=== PATIENT | female | born 1985 | race Caucasian/White ===

== ENCOUNTER 2017-09-25 09:25 | Emergency (ER) | payer OTHER ==
[2017-09-25 09:29] VITALS: BP 119/60; PULSE 90; TEMP 98.7; BMI 27.8
--- NOTE | 2017-09-25 09:45 | PDOC ---
History of Present Illness - General Chief Complaint: Sore Throat Stated Complaint: Sore Throat Time Seen by Provider: 09/25/17 09:36 History Source: Patient Exam Limitations: No Limitations - History of Present Illness Initial Comments: Patient is a 31-year-old female who states that last night she began with a sore throat. She admits to a nonproductive cough, denies lymphadenopathy, denies fever. She denies sick contacts. She describes the pain as sore and rates it at a 2 out of 10. Denies any aggravating or relieving factors. 09/25/17 09:41 Timing/Duration: 24 hours Past History - Travel Traveled outside of the country in the last 30 days: No Close contact w/someone who was outside of country & ill: No - Past Medical History Allergies/Adverse Reactions: Allergies Allergy/AdvReac Type Severity Reaction Status Date / Time No Known Allergies Allergy Verified 09/25/17 09:29 Home Medications: Ambulatory Orders NK [No Known Home Medication] 09/25/17 Asthma: No Cancer: No Cardiac Disorders: No COPD: No Diabetes: No HTN: No Seizures: No Thyroid Disease: No Other medical history: denies - Immunization History Immunization Up to Date: Yes - Suicide/Smoking/Psychosocial Hx Smoking History: Never smoked Have you smoked in the past 12 months: No Information on smoking cessation initiated: No Hx Alcohol Use: No Drug/Substance Use Hx: No Hx Substance Use Treatment: No Review of Systems - Review of Systems Able to Perform ROS?: Yes Constitutional: No: Chills HEENTM: Yes: Throat Pain. No: Throat Swelling, Difficulty Swallowing Respiratory: Yes: Cough All Other Systems: Reviewed and Negative *Physical Exam - Vital Signs Last Vital Signs Temp Pulse Resp BP Pulse Ox 98.7 F 90 20 119/60 99 09/25/17 09:27 09/25/17 09:27 09/25/17 09:27 09/25/17 09:27 09/25/17 09:27 - Physical Exam Comments: 09/25/17 09:44 Constitutional: VS stated, pt appears in no apparent distress; sitting on exam table. Skin: Warm and dry. Intact, no lesions or excoriations. Head: Normocephalic; atraumatic Eyes: conjunctiva pink without injection or discharge. Ears: No tenderness present. Canals without injection or discharge; TM clear, no retractions or bulging. Nose: Patent, mucosa pink. No drainage. Throat: Oropharynx with pink and moist mucosa. Dentition good. No pharyngeal edema; erythema or exudate. Tongue normal, no fasciculations. Airway Patent. Hypoglossal area is soft. Uvula is midline. Neck: Supple, non-tender, with full ROM, trachea midline, no anterior/posterior cervical chain lymphadenopathy, thyroid nonpalpable. No stridor or bruits. Lungs: Bilateral breath sounds clear upon auscultation. No adventitious breath sounds. Heart: Regular rate and rhythm, S1/S2 auscultated. No murmurs, rubs, or gallops. No visible pulsations, heaves, or lifts on precordium. Musculoskeletal: Moves all extremities without difficulty. Neurologic: Awake, alert. Conversation fluent. Normal attention. Psychiatric: Appropriate affect. Medical Decision Making - Medical Decision Making 09/25/17 09:44 Pt's RBS was negative. Specimen sent out for throat culture. 09/25/17 10:02 *DC/Admit/Observation/Transfer Diagnosis at time of Disposition: Pharyngitis - Discharge Dispostion Disposition: HOME Condition at time of disposition: Stable Decision to Admit order: No - Referrals Referrals: Rafael Narayanan [Primary Care Provider] - - Patient Instructions Additional Instructions: Use warm saltwater gargles or Chloraseptic spray. Throw out toothbrush and replace with new. Force fluids. Follow-up with your PCP for worsening symptoms. - Post Discharge Activity Forms/Work/School Notes: Back to Work
== END 2017-09-25 10:09 | disposition home or self-care (01) ==
LOC: JERFT 09:25
DX: J02.9 Acute pharyngitis, unspecified (principal)
CPT/HCPCS: 87070; 87077; 87430; 99281-25

== ENCOUNTER 2018-09-26 23:33 | Emergency (ER) | payer OTHER | END 2018-09-27 02:42 | disposition home or self-care (01) | LOC: JER 23:33 | DX: S13.4XXA Sprain of ligaments of cervical spine, initial encounter (principal); V43.52XA Car driver injured in collision with other type car in traffic accident, initial encounter; Y93.89 Activity, other specified; Y92.410 Unspecified street and highway as the place of occurrence of the external cause ==

== ENCOUNTER 2019-12-01 09:35 | Emergency (ER) | payer OTHER ==
[2019-12-01 09:41] VITALS: BP 113/78; TEMP 98.4; BMI 24.0
--- OUTSIDE RECORDS SUMMARY | 2019-12-01 10:08 | XMS ---
:1985 Author Organization [facility] Support Name Relationship Address Phone [facility] Unavailable [address] [place] [address] [facility] Unavailable [address] [place] [address] SARA LARRY SISTER [address] [place] [address] Re-disclosure Warning The records that you are about to access may contain information from federally- assisted alcohol or drug abuse programs. If such information is present, then the following federally mandated warning applies: This information has been disclosed to you from records protected by federal confidentiality rules (42 CFR part 2). The federal rules prohibit you from making any further disclosure of this information unless further disclosure is expressly permitted by the written consent of the person to whom it pertains or as otherwise permitted by 42 CFR part 2. A general authorization for the release of medical or other information is NOT sufficient for this purpose. The Federal rules restrict any use of the information to criminally investigate or prosecute any alcohol or drug abuse patient.The records that you are about to access may contain highly sensitive health information, the redisclosure of which is protected by Article 27-F of the [facility] Public Health law. If you continue you may haveaccess to information: Regarding HIV / AIDS; Provided by facilities licensed or operated by the [facility] Office of Mental Health; or Provided by the [facility] Office for People With Developmental Disabilities. If such information is present, then the following [facility] mandated warning applies: This information has been disclosed to you from confidential records which are protected by state law. State law prohibits you from making any further disclosure of this information without the specific written consent of the person to whom it pertains, or as otherwise permitted by law. Any unauthorized further disclosure in violation of state law may result in a fine or detention sentence or both. A general authorization for the release of medical or other information is NOT sufficient authorization for further disclosure. Insurance Providers Payer name Policy type Policy ID Covered Covered alliance party's Policy P van / Coverage alliance party ID relationship to Butt Inf ormation type butt [place] [id number] HMO [employer] [place] [id number] [facility]
--- NOTE | 2019-12-01 10:33 | EKG ---
Test Reason : Blood Pressure : / mmHG Vent. Rate : 106 BPM Atrial Rate : 106 BPM P-R Int : 146 ms QRS Dur : 060 ms QT Int : 314 ms P-R-T Axes : 048 020 049 degrees QTc Int : 417 ms SINUS TACHYCARDIA LOW VOLTAGE QRS CANNOT RULE OUT ANTERIOR INFARCT (CITED ON OR BEFORE 01-DEC-2019) ABNORMAL ECG WHEN COMPARED WITH ECG OF 04-OCT-2010 21:23, NO SIGNIFICANT CHANGE WAS FOUND Confirmed by MD Gaston, Alexander ([id number]) on 12/01/2019 10:33:08 AM Referred By: Confirmed By:Alexander Feldman MD
--- NOTE | 2019-12-01 10:35 | PDOC ---
Documentation entered by Martin Issa SCRIBE, acting as scribe for Maine Aguayo MD. Maine Aguayo MD: This documentation has been prepared by the Maegan skaggs Angel, SCRIBE, under my direction and personally reviewed by me in its entirety. I confirm that the documentation accurately reflects all work, treatment, procedures, and medical decision making performed by me. History of Present Illness - General Chief Complaint: Irregular Heart Beat Stated Complaint: Shortness of Breath Time Seen by Provider: 12/01/19 09:47 History Source: Patient Exam Limitations: No Limitations - History of Present Illness Initial Comments: 12/01/19 10:28 The patient is a 33 year old female who presents to the ED with a transient tachycardia, palpitations and shortness of breath. The patient is an employee here on the telemetry unit at [employer] and this morning around 9am she had episode of shortness of breath and "heart fluttering" sensation, that lasted several seconds associated with tachycardia 130-140s. The patient became short of breath and lightheaded for a brief period of time. The patient states she was not performing any strenuous activities at the time and tries to avoid coffee, no OTC supplements or herbal remedies. The patient states she can feel the palpitations for a brief moment before going back to normal. 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 She has IUD for control, denies use of OCPs Denies numbness/tingling, headache, fever, chills, chest pain, congestion, visual or hearing disturbances, weakness, N, V, D, abdominal pain, bladder and b owel problems, leg swelling, No sick contacts or travel. No new changes in medications. Allergies: None Past Medical History: No history Social history: Lives with family. No tobacco, ETOH or drug use. Family History: History of blood clots on her mothers side. no h/o VT or sudden deaths or arrhythmias. Surgical history: No Surgical history Meds: none PMD: Rafael Narayanan 12/01/19 10:33 12/01/19 10:35 Past History - Medical History Allergies/Adverse Reactions: Allergies Allergy/AdvReac Type Severity Reaction Status Date / Time No Known Allergies Allergy Verified 12/01/19 09:41 Home Medications: Ambulatory Orders Methocarbamol [Robaxin-750] 750 mg PO QID PRN #20 tablet 09/27/18 Asthma: No Cancer: No Cardiac Disorders: No COPD: No Diabetes: No HTN: No Seizures: No Thyroid Disease: No - Reproductive History Is Patient Now?: No - Immunization History Immunization Up to Date: Yes - Psycho-Social/Smoking History Smoking History: Never smoked Have you smoked in the past 12 months: No Information on smoking cessation initiated: No - Substance Abuse Hx (Audit-C & DAST Scrn) How often the patient has a drink containing alcohol: Never Score: In Men: 4 or > Positive; In Women: 3 or > Positive: 0 Screen Result (Pos requires Nsg. Audit-10AR): Negative In the last yr the pt used illegal drug/Rx for NonMed reason: No Score: Yes response is considered Positive: 0 Screen Result (Positive result requires Nsg. DAST-10): Negative Review of Systems - Review of Systems Able to Perform ROS?: Yes Comments:: 12/01/19 10:32 GENERAL/CONSTITUTIONAL: No fever or chills. No weakness. no sweats. HEAD, EYES, EARS, NOSE AND THROAT: No change in vision or hearing. No congestion. No headache. +dizziness CARDIOVASCULAR: No chest pain or palpitations, syncope or edema. RESPIRATORY:+SOB. no cough GASTROINTESTINAL No nausea/vomiting. No diarrhea or constipation. No bloody stools. GENITOURINARY: No hematuria, dysuria, frequency, urgency or other changes. MUSCULOSKELETAL: No joint or muscle swelling or pain. No decreased range of motion. No neck or back pain. SKIN: No rash or changes in skin color or lesions. No wounds. NEUROLOGIC: +lightheadedness. alert and oriented appropriately No headache, loss of consciousness, or change in strength/sensation. No gait instability. HEMATOLOGIC/LYMPHATIC: No anemia, easy bruising/bleeding, or history of blood clots. +family history of blood clots. ALLERGIC/IMMUNOLOGIC: No allergies PSYCH: +history of depression All other systems reviewed and negative, or as documented in HPI. 12/01/19 11:27 *Physical Exam - Vital Signs Last Vital Signs Temp Pulse Resp BP Pulse Ox 98.4 F 116 H 20 113/78 100 12/01/19 09:38 12/01/19 09:38 12/01/19 09:38 12/01/19 09:38 12/01/19 09:38 - Physical Exam 12/01/19 10:17 General: Well appearing, awake and alert, NAD. HEENT: NCAT, PERRL, EOMI, clear conjunctiva, anicteric, moist mucous membranes, clear oropharynx, no oral lesions.. Neck: neck supple, FROM Resp: CTAB, normal and even respirations, no respiratory distress CVS: RRR, no murmurs, 2+ peripheral pulses throughout, no peripheral edema Abdomen: soft, NTND, no rebound or guarding. Back: nontender, normal inspection and ROM] MSK: no edema, MARIE x4, ROM intact. No clubbing or cyanosis. normal bulk and tone. Extremities: no calf tenderness Neuro: alert, oriented appropriately; no focal neurologic deficits, speech clear. Skin: warm and well perfused, cap refill <2 sec, normal color 12/01/19 11:28 Heart Score/ECG Review #1 ECG reviewed & interpreted by me at: 09:35 General ECG Interpretation: Sinus Rhythm, Normal Intervals 12/01/19 10:33 EKG sinus tachycardia 106 bpm no interval abnormalities, narrow QRS, ST and T wave segments and morphology normal. Nonspecific T wave abnormalities ED Treatment Course - LABORATORY CBC & Chemistry Diagram: 12/01/19 10:20 12/01/19 10:20 Medical Decision Making - Medical Decision Making 12/01/19 11:04 Vital Signs Temp Pulse Resp BP Pulse Ox 98.4 F 93 H 20 113/78 98 12/01/19 09:38 12/01/19 10:39 12/01/19 10:39 12/01/19 10:39 12/01/19 10:00 vitals reviewed, no fever, HD appropriate, initially tachy, 116, then rechecked and 90s. no symptoms currently. no neurologic deficits DDx SOB: ACS, vasospasm, arrhythmia, AVNRT, SVT, PE, PTX, CHF, COPD exac, pulmonary edema, pleurisy, pneumonia, viral syndrome. effusion. anemia, electrolyte/metabolic derangements. Considered but clinically doubt based on HPI and PE: Low suspicion for pulmonary embolism or dissection. Interpreted by ED Physician: CXR (1 view): no acute abnormality: no infiltrates, bones appear intact and structures normal alignment, cardiac silhouette within normal limits. no free air under diaphragm, no pneumothorax. EKG sinus tachycardia, no interval abnormalities, narrow QRS, ST and T wave segments and morphology normal. Nonspecific T wave abnormalities, labs and lytes wnl, reassuring neg preg test cardiac panel_negative. dimer is negative <500 so unlikely PE No evidence of ACS, pericarditis, myocarditis, pulmonary embolism, pneumothorax, pneumonia, Zoster, or esophageal perforation. Historically not abrupt in onset, tearing or ripping, pulses symmetric, no evidence of aortic dissection. repeat VS improved, no events on monitor. NSR 90s. asymptomatic PMD/cards follow up as outpatient, return precautions as below 12/01/19 11:07 Pt to be discharged in stable condition. Patient made aware of clinical impression, treatment recommendations and disposition plan, return precautions discussed (including but not limited to new or persistent/worsening symptoms, pain, fevers, or signs of infection, chest pain, respiratory distress, inability to tolerate oral intake, dehydration, syncope, or neurologic changes). Follow up with PMD and/or cardiologists as recommended, follow up information provided, take medications as instructed for duration of time. continue with supportive care, avoid triggers and precipitants. All questions answered to patient's satisfaction and expressed understanding and comfort with this. At the time of discharge, the patient is alert, clinically improved, tolerating po and verbalizes understanding of instructions, satisfied with the care received and felt comfortable with the plan. Patient does not suffer from an acute life- threatening medical condition at this time and is safe for outpatient follow- up. 12/01/19 11:28 12/01/19 11:28 Discharge - Discharge Information Problems reviewed: Yes Clinical Impression/Diagnosis: Palpitations Condition: Improved Disposition: HOME - Admission No - Follow up/Referral Referrals: Jerald Quiñonez MD [Staff Physician] - Max Velarde MD [Staff Physician] - Rafael Narayanan [Primary Care Provider] - Angelito Denis MD [Staff Physician] - Elizabeth Monteor MD [Staff Physician] - - Patient Discharge Instructions Patient Printed Discharge Instructions: DI for Arrhythmias, DI for Tachycardia, DI for Palpitations Additional Instructions: 1) Please follow-up with your primary care doctor in the next 1-2 days. Please call tomorrow for for any urgent issues. please follow up with cardiologists for your palpitations and tachycardia. 2) You were given a copy of the tests performed today. Please bring the results with you and review them with your primary care doctor. Your laboratory / imaging results were normal, 3) If you have any worsening of symptoms or any other concerns please return to the ED immediately. Return if worsening symptoms including fevers, headache, vomiting, visual or hearing disturbances, abdominal pain, chest pain, shortness of breath, syncope, dehydration, inability to take things by mouth/vomiting, al tered mental status, or worsening concerning symptoms. 4) Please continue taking your home medications as directed. Stay well hydrated and rest adequately. Make an appointment. If you cannot follow-up with your primary care doctor please return to the ED - Post Discharge Activity Vital Signs - Vital Signs Vital signs refused: No Pulse Rate: 93 Respiratory Rate: 20 Blood Pressure: 113/78 BP Location: Left Arm Blood Pressure position: Sitting
[2019-12-01 10:39] VITALS: PULSE 93
[2019-12-01 10:46] LABS: BASO % 0.8 % (0-2.0); EOS % 0.7 % (0-4.5); HEMATOCRIT 42.3 % (32.4-45.2); HEMOGLOBIN 14.4 GM/dL (10.7-15.3); LYMPH % 25.7 % (8-40); MCH 29.2 pg (25.7-33.7); MCHC 34.1 g/dl (32.0-36.0); MEAN CELL VOLUME 85.5 fl (80-96); MEAN PLT VOLUME 8.2 fl (7.5-11.1); MONO % 5.4 % (3.8-10.2); NEUT % 67.4 % (42.8-82.8); PLATELET COUNT 196 K/MM3 (134-434); RBC 4.95 M/mm3 (3.60-5.2); RDW 13.1 % (11.6-15.6); WHITE BLOOD COUNT 5.3 K/mm3 (4.0-10.0)
[2019-12-01 11:15] LABS: CHLORIDE 109 mmol/L (98-107); POTASSIUM 4.5 mmol/L (3.5-5.1); SODIUM 140 mmol/L (136-145)
[2019-12-01 11:16] LABS: ALBUMIN 3.8 g/dl (3.4-5.0); ALK PHOS 63 U/L (45-117); ANION GAP 4 MMOL/L (8-16); BILIRUBIN,TOTAL 0.8 mg/dL (0.2-1); BLOOD UREA NITROGEN 9.4 mg/dL (7-18); CO2 27 mmol/L (21-32); CREATININE 0.8 mg/dL (0.55-1.3); GLUCOSE,RANDOM 100 mg/dL (74-106); MAGNESIUM 2.2 mg/dL (1.8-2.4); SGOT/AST 9 U/L (15-37); SGPT/ALT 18 U/L (13-61); TOT PROT 7.3 g/dl (6.4-8.2)
== END 2019-12-01 11:53 | disposition home or self-care (01) ==
LOC: JER 09:35
DX: R00.2 Palpitations (principal)
CPT/HCPCS: 36415; 71045-TC-FY; 80053; 82550; 83735; 83880; 84484; 84703; 85025; 85379; 93005; 93010; 99285-25

== ENCOUNTER 2020-04-10 12:03 | Emergency (ER) | payer OTHER ==
[2020-04-10 12:16] VITALS: BP 110/64; PULSE 108; TEMP 98.5; BMI 24.0
[2020-04-10] MEDS ORDERED: METHOCARBAMOL 500 MG TABLET PO ONE (12:32)
[2020-04-10] MEDS ORDERED: IBUPROFEN 400 MG TABLET (FP) PO ONE ×2 (12:32→12:37)
[2020-04-10] MEDS ORDERED: METHOCARBAMOL 500 MG TABLET ONE (12:37)
[2020-04-10] MEDS ORDERED: LIDOCAINE 5% TOPICAL PATCH TP ONE (13:16)
[2020-04-10] MEDS ORDERED: LIDOCAINE 5% TOPICAL PATCH ONE (13:18)
== END 2020-04-10 13:21 | disposition home or self-care (01) ==
LOC: JERFT 12:03
DX: S39.012A Strain of muscle, fascia and tendon of lower back, initial encounter (principal)
CPT/HCPCS: 99283-25

== ENCOUNTER 2021-11-22 13:23 | Emergency (ER) | payer OTHER ==
[2021-11-22 13:33] VITALS: BP 105/62; PULSE 103; RESP 18; TEMP 98.5; BMI 24.8
[2021-11-22] MEDS ORDERED: ACETAMINOPHEN 500 MG TABLET (FP) PO ONE (14:23)
[2021-11-22] MEDS ORDERED: ACETAMINOPHEN 500 MG TABLET (FP) ONE (14:24)
== END 2021-11-22 15:13 | disposition home or self-care (01) ==
LOC: JERFT 13:23
DX: M54.42 Lumbago with sciatica, left side (principal)
CPT/HCPCS: 99283-25

== ENCOUNTER 2021-12-20 09:41 | Emergency (ER) | payer OTHER ==
[2021-12-20 09:48] VITALS: BP 92/62; PULSE 95; RESP 18; TEMP 98.4; BMI 26.2
[2021-12-20] MEDS ORDERED: LIDOCAINE 5% TOPICAL PATCH TP ONE (10:53)
[2021-12-20] MEDS ORDERED: KETOROLAC TROMETHAMINE 30 MG/1 ML VIAL IM ONE (10:53)
[2021-12-20] MEDS ORDERED: LIDOCAINE 5% TOPICAL PATCH ONE (11:11)
[2021-12-20] MEDS ORDERED: KETOROLAC TROMETHAMINE 30 MG/1 ML VIAL ONE (11:11)
== END 2021-12-20 11:35 | disposition home or self-care (01) ==
LOC: JER 09:41 → JERFT 09:41
PROC: 3E023GC Introduction of Other Therapeutic Substance into Muscle, Percutaneous Approach (ICD-10-PCS; principal; 2021-12-20)
DX: M54.50 Low back pain, unspecified (principal)
CPT/HCPCS: 99284-25

== ENCOUNTER 2022-08-23 15:30 | Inpatient (IN) | payer OTHER ==
[2022-08-23] MEDS ORDERED: AMPICILLIN SODIUM 2 GM VIAL IVPB ONE (16:00)
[2022-08-23] MEDS ORDERED: BETAMET ACET/BETAMET NA PH 30 MG/5 ML VIAL ONE (16:05)
[2022-08-23] MEDS ORDERED: AMPICILLIN SODIUM 2 GM VIAL ONE (16:05)
[2022-08-23 16:44] VITALS: BMI 31.9
[2022-08-23] MEDS ORDERED: PROMETHAZINE HCL 25 MG/1 ML VIAL IVPB ONE (16:50)
[2022-08-23] MEDS ORDERED: BUTORPHANOL TARTRATE 1 MG/ML VIAL IVPB PRN (16:50)
[2022-08-23] MEDS ORDERED: ELECTROLYTE-148 SOLN 1,000 ML IV SCH (17:00)
[2022-08-23] MEDS ORDERED: BETAMET ACET/BETAMET NA PH 30 MG/5 ML VIAL IM ONE (17:15)
[2022-08-23 17:33] LABS: BASO % 0.4 % (0-2.0); EOS % 0.4 % (0-4.5); HEMATOCRIT 33.9 % (32.4-45.2); HEMOGLOBIN 10.8 GM/dL (10.7-15.3); LYMPH % 9.4 % (8-40); MCH 23.6 pg (25.7-33.7); MEAN CELL VOLUME 73.6 fl (80-96); MEAN PLT VOLUME 8.2 fl (7.5-11.1); MONO % 5.5 % (3.8-10.2); NEUT % 84.3 % (42.8-82.8); PLATELET COUNT 184 10^3/uL (134-434); RDW 14.5 % (11.6-15.6); WHITE BLOOD COUNT 13.8 K/mm3 (4.0-10.0)
[2022-08-23 17:43] LABS: INR 0.97 (0.83-1.09); PROTHROMBIN TIME (PATIENT) 11.2 SEC (9.7-13.0)
[2022-08-23 17:45] LABS: ACTIVATED PTT 26.4 SECONDS (25.2-36.5)
[2022-08-23 18:05] LABS: POTASSIUM 4.7 mmol/L (3.5-5.1)
[2022-08-23 18:07] LABS: CALCIUM 9.4 mg/dL (8.5-10.1)
[2022-08-23 18:11] LABS: CREATININE 0.7 mg/dL (0.55-1.3)
[2022-08-23 19:01] LABS: HIV INTERPRETATION NEGATIVE (NEGATIVE)
[2022-08-23] MEDS ORDERED: AMPICILLIN SODIUM 1 GM VIAL ONE (20:12)
[2022-08-23] MEDS: AMPICILLIN - 1 GM in SODIUM CHLORIDE 100 ML IVPB SCH (20:17)
[2022-08-23] MEDS ORDERED: SUCCINYLCHOLINE CHLORIDE 200 MG/10 ML SYRINGE ONE (22:53)
[2022-08-23] MEDS ORDERED: PROPOFOL 20 ML ONE (22:54)
[2022-08-23] MEDS ORDERED: FENTANYL CITRATE/PF 50 MCG/ML VIAL ONE ×3 (22:57→23:56)
[2022-08-23] MEDS ORDERED: OXYTOCIN 10 UNITS/ML VIAL ONE ×2 (23:11→23:34)
[2022-08-23] MEDS ORDERED: ceFAZolin SODIUM 1 GM VIAL ONE (23:14)
[2022-08-23] MEDS ORDERED: ONDANSETRON 4 MG/2 ML VIAL ONE ×2 (23:14→23:59)
[2022-08-23] MEDS ORDERED: DEXAMETHASONE SOD PHOSPHATE 4 MG/1 ML VIAL ONE (23:14)
[2022-08-23 23:26] LABS: CORD BASE EXCESS -5.6 mmol/L (0-2); CORD HCO3 22.2 mmHg (20-29); CORD PCO2 52.3 mmHg (30-78); CORD pH 7.246 (7.14-7.44)
[2022-08-23 23:27] LABS: CORD BASE EXCESS -6.1 mmol/L (0-2); CORD HCO3 21.5 mmHg (20-29); CORD PCO2 50.4 mmHg (30-78); CORD pH 7.248 (7.14-7.44)
[2022-08-23] MEDS ORDERED: CALCIUM CHLORIDE 1 GM/10 ML *DISP.SYRIN ONE (23:34)
[2022-08-23] MEDS ORDERED: IBUPROFEN 600 MG TABLET (FP) PO PRN (23:38)
[2022-08-23] MEDS ORDERED: SIMETHICONE 80 MG TAB.CHEW (FP) PO PRN (23:38)
[2022-08-23] MEDS ORDERED: IBUPROFEN 800 MG/8 ML IJ IVPB PRN (23:38)
[2022-08-23] MEDS ORDERED: ACETAMINOPHEN 325 MG TABLET (FP) PO PRN (23:38)
[2022-08-23] MEDS ORDERED: METHYLERGONOVINE MALEATE 0.2 MG/1 ML AMP IM PRN (23:38)
[2022-08-23] MEDS ORDERED: NEOSTIGMINE METHYLSULFATE 0.5 MG/1 ML - 10 ML MDV ONE ×2 (23:43)
[2022-08-23] MEDS ORDERED: OXYTOCIN 20 UNITS in 0.9% NS 20 UNIT/1,000 ML INFUS.BAG IV SCH (23:45)
[2022-08-23] MEDS ORDERED: GLYCOPYRROLATE 0.2 MG/1 ML VIAL ONE (23:51)
[2022-08-24] MEDS ORDERED: FENTANYL CITRATE/PF 50 MCG/ML VIAL ONE ×2 (00:13→00:19)
[2022-08-24] MEDS ORDERED: METHYLERGONOVINE MALEATE 0.2 MG/1 ML AMP IM PRN (00:19)
[2022-08-24] MEDS ORDERED: ACETAMINOPHEN 325 MG TABLET (FP) PO PRN (00:19)
[2022-08-24] MEDS ORDERED: OXYTOCIN 20 UNITS in 0.9% NS 20 UNIT/1,000 ML INFUS.BAG IV SCH (00:30)
[2022-08-24] MEDS ORDERED: LACTATED RINGERS SOLUTION 1,000 ML IV SCH (00:30)
[2022-08-24] MEDS ORDERED: HYDROmorphone *PCA* 10MG/50ML DISP.SYRIN PCA SCH ×2 (00:30→00:32)
[2022-08-24] MEDS ORDERED: HYDROmorphone HCl 2 MG/ML VIAL IVPB ONE (00:36)
[2022-08-24] MEDS: IBUPROFEN 800 MG/8 ML IJ IVPB SCH ×4 (00:45→20:33)
[2022-08-24] MEDS: AMPICILLIN - 1 GM in SODIUM CHLORIDE 100 ML IVPB SCH ×2 (01:55→06:32)
[2022-08-24] MEDS ORDERED: OXYTOCIN 20 UNITS in 0.9% NS 20 UNIT/1,000 ML INFUS.BAG IV ONE (02:08)
[2022-08-24] MEDS: PRENATAL VITAMINS W/ FOLIC ACID TABLET (FP) PO SCH (10:00)
[2022-08-24] MEDS ORDERED: oxyCODONE HCL 5 MG TABLET PO PRN ×3 (11:38→12:19)
[2022-08-24] MEDS: IBUPROFEN 600 MG TABLET (FP) PO PRN (20:35)
[2022-08-24] MEDS: SIMETHICONE 80 MG TAB.CHEW (FP) PO PRN (20:36)
[2022-08-24] MEDS: FERROUS SO4 325 MG TABLET (FP) PO SCH (21:10)
[2022-08-24] MEDS ORDERED: BISACODYL 10 MG SUPP.RECT RC PRN (23:38)
[2022-08-25] MEDS: SIMETHICONE 80 MG TAB.CHEW (FP) PO PRN ×3 (04:02→20:57)
[2022-08-25] MEDS: IBUPROFEN 600 MG TABLET (FP) PO PRN (04:02)
[2022-08-25 07:16] LABS: BASO % 0.2 % (0-2.0); HEMATOCRIT 24.9 % (32.4-45.2); HEMOGLOBIN 7.8 GM/dL (10.7-15.3); LYMPH % 10.6 % (8-40); MCH 24.3 pg (25.7-33.7); MCHC 31.5 g/dl (32.0-36.0); MEAN PLT VOLUME 8.8 fl (7.5-11.1); MONO % 5.6 % (3.8-10.2); NEUT % 83.6 % (42.8-82.8); PLATELET COUNT 180 10^3/uL (134-434); RBC 3.23 M/mm3 (3.60-5.2); RDW 14.7 % (11.6-15.6); WHITE BLOOD COUNT 17.4 K/mm3 (4.0-10.0)
[2022-08-25] MEDS: oxyCODONE HCL 5 MG TABLET PO PRN ×2 (09:36→20:57)
[2022-08-25] MEDS: BISACODYL 10 MG SUPP.RECT RC PRN (09:38)
[2022-08-25] MEDS: PRENATAL VITAMINS W/ FOLIC ACID TABLET (FP) PO SCH (09:38)
[2022-08-25] MEDS: FERROUS SO4 325 MG TABLET (FP) PO SCH ×2 (09:38→20:59)
[2022-08-26] MEDS: SIMETHICONE 80 MG TAB.CHEW (FP) PO PRN ×3 (00:25→21:21)
[2022-08-26 08:10] LABS: POC NITRAZINE POS
[2022-08-26] MEDS: IBUPROFEN 600 MG TABLET (FP) PO PRN ×2 (08:44→17:52)
[2022-08-26] MEDS: PRENATAL VITAMINS W/ FOLIC ACID TABLET (FP) PO SCH (10:44)
[2022-08-26] MEDS: FERROUS SO4 325 MG TABLET (FP) PO SCH ×2 (10:44→21:21)
[2022-08-26] MEDS: BISACODYL 10 MG SUPP.RECT RC PRN (21:28)
[2022-08-27 06:49] LABS: BASO % 0.8 % (0-2.0); EOS % 1.7 % (0-4.5); HEMATOCRIT 25.8 % (32.4-45.2); HEMOGLOBIN 8.3 GM/dL (10.7-15.3); LYMPH % 21.6 % (8-40); MCH 24.8 pg (25.7-33.7); MCHC 32.3 g/dl (32.0-36.0); MEAN PLT VOLUME 8.1 fl (7.5-11.1); MONO % 5.2 % (3.8-10.2); NEUT % 70.7 % (42.8-82.8); PLATELET COUNT 201 10^3/uL (134-434); RBC 3.35 M/mm3 (3.60-5.2); RDW 14.7 % (11.6-15.6); WHITE BLOOD COUNT 10.8 K/mm3 (4.0-10.0)
[2022-08-27] MEDS: FERROUS SO4 325 MG TABLET (FP) PO SCH (10:34)
[2022-08-27] MEDS: SIMETHICONE 80 MG TAB.CHEW (FP) PO PRN (10:34)
[2022-08-27] MEDS: PRENATAL VITAMINS W/ FOLIC ACID TABLET (FP) PO SCH (10:34)
[2022-08-27] MEDS: IBUPROFEN 600 MG TABLET (FP) PO PRN (10:34)
[2022-08-27 11:59] VITALS: RESP 17
[2022-08-27 16:51] VITALS: BP 121/76; PULSE 91; TEMP 97.4
== END 2022-08-27 17:20 | disposition home or self-care (01) | DRG 786 ==
LOC: JDEL 15:30 → JLDR 16:00 → J3W 08-24 04:42
PROVIDERS: ADMIT Obstetrics & Gynecology; ATTEND Obstetrics & Gynecology
PROC: 10D00Z1 Extraction of Products of Conception, Low, Open Approach (ICD-10-PCS; principal; 2022-08-23)
DX: O36.8330 Maternal care for abnormalities of the fetal heart rate or rhythm, third trimester, not applicable or unspecified (principal); O60.14X0 Preterm labor third trimester with preterm delivery third trimester, not applicable or unspecified; O36.63X0 Maternal care for excessive fetal growth, third trimester, not applicable or unspecified; Z3A.34 34 weeks gestation of pregnancy; Z37.0 Single live birth
CPT/HCPCS: 36415; 36600; 59025; 74190-TC-FY; 80048; 82803; 83986-QW; 85025; 85610; 85730; 86780; 86850; 86900; 86901; 87389; 88307-TC; 96372